=== PATIENT | female | born 1995 | race Caucasian/White ===

== ENCOUNTER 2021-08-30 11:31 | Inpatient (IN) | payer OTHER ==
[~2021-08-30] VITALS: Ht 165.1 cm; Wt 77.1 kg
[2021-08-30 12:48] LABS: HEMOGLOBIN 11.5 gm/dl (12.3-15.3); RED BLOOD COUNT 3.76 M/UL (4.00-5.10); WHITE BLOOD COUNT 9.8 K/UL (4.5-11.0)
[2021-08-30] MEDS ORDERED: PRENATAL VITAM1 EAC3 PO (12:49)
[2021-08-30] MEDS ORDERED: COLACE 100MG C100 MG PO (17:03)
[2021-08-30] MEDS ORDERED: IBUPROFEN600 MG PO (17:03)
[2021-08-31 07:53] LABS: HEMOGLOBIN 10.6 gm/dl (12.3-15.3)
== END 2021-09-01 14:00 | disposition home or self-care (01) | DRG 807 ==
LOC: GENOP 11:31 → OB 11:38
PROVIDERS: ADMIT Obstetrics & Gynecology
PROC: 10E0XZZ Delivery of Products of Conception, External Approach (ICD-10-PCS; principal; 2021-08-30)
PROC: 4A1HXCZ Monitoring of Products of Conception, Cardiac Rate, External Approach (ICD-10-PCS; 2021-08-30)
PROC: 3E033VJ Introduction of Other Hormone into Peripheral Vein, Percutaneous Approach (ICD-10-PCS; 2021-08-30)
PROC: 0W8NXZZ Division of Female Perineum, External Approach (ICD-10-PCS; 2021-08-30)
DX: O70.9 Perineal laceration during delivery, unspecified (principal); Z37.0 Single live birth; O99.824 Streptococcus B carrier state complicating childbirth; Z3A.40 40 weeks gestation of pregnancy; Z20.822 Contact with and (suspected) exposure to COVID-19
CPT/HCPCS: 36415; 81001; 82800; 85014; 85018; 85025; 90686; 90715; J2590; J7120